=== PATIENT | male | born 1980 | race Caucasian/White ===

== ENCOUNTER 2016-04-16 19:57 | Emergency (ER) | payer SELFPAY ==
[~2016-04-16] VITALS: Ht 193 cm; Wt 128.0 kg
[~2016-04-16 19:57] MED LIST: BENA25TA8 PO; EPIP0.3I IM; MEDR4PAK3 PO
[2016-04-16 19:58] VITALS: BP 160/81; PULSE 82; RESP 18; TEMP 98.2; O2SAT 97
== END 2016-04-16 23:45 | disposition left against medical advice (07) ==
LOC: NED 19:57
DX: R11.2 Nausea with vomiting, unspecified (principal); R42 Dizziness and giddiness; Z53.21 Procedure and treatment not carried out due to patient leaving prior to being seen by health care provider
CPT/HCPCS: 99281

== ENCOUNTER 2016-09-19 16:53 | Emergency (ER) | payer OTHER ==
[~2016-09-19] VITALS: Ht 195.6 cm; Wt 145.0 kg
[2016-09-19 17:01] VITALS: BP 143/100; PULSE 86; RESP 16; TEMP 98.7; O2SAT 95
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
[2016-09-19 17:08] VITALS: BP 143/100; PULSE 82; RESP 16; O2SAT 96
[2016-09-19 17:57] LABS: AUTOMATED NEUTROPHIL # 6.4 TH/MM3 (1.8-7.7); BASOPHIL % 0.2 % (0.0-2.0); EOSINOPHIL # 0.1 TH/MM3 (0-0.4); EOSINOPHIL % 0.8 % (0.0-4.0); HEMATOCRIT 43.8 % (39.0-51.0); HEMO FLAGS DIFF FINAL; LYMPH % 22.2 % (9.0-44.0); LYMPHOCYTE # 2.1 TH/MM3 (1.0-4.8); MEAN CELL VOLUME 83.7 FL (80.0-100.0); MEAN CORPUSCULAR HEMOGLOBIN 27.8 PG (27.0-34.0); MEAN CORPUSCULAR HGB CONC 33.2 % (32.0-36.0); MONO % 8.3 % (0.0-8.0); NEUT % 68.5 % (16.0-70.0); PLATELET COUNT 232 TH/MM3 (150-450); RED BLOOD COUNT 5.23 MIL/MM3 (4.50-5.90); RED CELL DISTRIBUTION WIDTH 13.6 % (11.6-17.2); WHITE BLOOD COUNT 9.4 TH/MM3 (4.0-11.0)
[2016-09-19 18:10] VITALS: BP 133/63; PULSE 69; RESP 18; O2SAT 96
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
[2016-09-19 18:25] LABS: ALT (GPT) 29 U/L (12-78); ANION GAP 8 MEQ/L (5-15); AST (GOT) 20 U/L (15-37); BICARBONATE 26.4 MEQ/L (21.0-32.0); BLOOD UREA NITROGEN 11 MG/DL (7-18); CHLORIDE 105 MEQ/L (98-107); GLOMERULAR FILTRATION RATE 90 ML/MIN (>89); POTASSIUM 3.9 MEQ/L (3.5-5.1); SODIUM (NA) 139 MEQ/L (136-145)
[2016-09-19 18:27] LABS: ALKALINE PHOSPHATASE 122 U/L (45-117); CREATINE KINASE 173 U/L (39-308); TOTAL BILIRUBIN ADULT 0.5 MG/DL (0.2-1.0)
--- NOTE | 2016-09-20 12:17 | EKG ---
Date Performed: 09/19/2016 Time Performed: 17:03:31 PTAGE: 36 years EKG: Sinus rhythm POSSIBLE LEFT ATRIAL ENLARGEMENT Since previous tracing, no significant change noted BORDERLINE ECG PREVIOUS TRACING : 03/07/2014 00.28.34 DOCTOR: Christopher Gregorio Interpretating Date/Time 09/20/2016 12:15:16
== END 2016-09-19 19:02 | disposition home or self-care (01) ==
LOC: NEPC 16:53
DX: R20.9 Unspecified disturbances of skin sensation (principal); M79.605 Pain in left leg; F17.200 Nicotine dependence, unspecified, uncomplicated; W86.0XXA Exposure to domestic wiring and appliances, initial encounter
CPT/HCPCS: 73030; 73090; 73130; 80053; 82550; 84484; 85025; 93005; 99284

== ENCOUNTER 2017-08-27 15:02 | Emergency (ER) | payer SELFPAY ==
[~2017-08-27] VITALS: Ht 193 cm; Wt 150.0 kg
[2017-08-27 15:10] VITALS: BP 126/87; PULSE 91; RESP 20; TEMP 98.7; O2SAT 96
[2017-08-27] MEDS ORDERED: SODIUM CHLOR 0.9% 1000 ML INJ 1,000 ML IV SCH (16:08)
[2017-08-27] MEDS ORDERED: KETOROLAC TROMETHAMINE 30 MG/ML (IVP) VIAL IVP ONE (16:15)
[2017-08-27] MEDS ORDERED: ONDANSETRON ODT 4 MG TAB PO ONE (16:15)
[2017-08-27] MEDS ORDERED: SODIUM CHLORIDE 0.9% FLUSH 10 ML FLUSH IV FLUSH PRN (16:15)
[2017-08-27 16:49] LABS: AUTOMATED NEUTROPHIL # 7.2 TH/MM3 (1.8-7.7); BASOPHIL % 0.2 % (0.0-2.0); EOSINOPHIL # 0.2 TH/MM3 (0-0.4); EOSINOPHIL % 1.7 % (0.0-4.0); HEMATOCRIT 41.6 % (39.0-51.0); HEMOGLOBIN 13.7 GM/DL (13.0-17.0); LYMPH % 27.4 % (9.0-44.0); LYMPHOCYTE # 3.1 TH/MM3 (1.0-4.8); MEAN CELL VOLUME 83.7 FL (80.0-100.0); MEAN CORPUSCULAR HEMOGLOBIN 27.7 PG (27.0-34.0); MEAN CORPUSCULAR HGB CONC 33.1 % (32.0-36.0); MEAN PLATELET VOLUME 8.5 FL (7.0-11.0); MONO % 7.5 % (0.0-8.0); MONOCYTE # 0.9 TH/MM3 (0-0.9); NEUT % 63.2 % (16.0-70.0); PLATELET COUNT 254 TH/MM3 (150-450); RED BLOOD COUNT 4.97 MIL/MM3 (4.50-5.90); WHITE BLOOD COUNT 11.4 TH/MM3 (4.0-11.0)
[2017-08-27 16:52] LABS: PROTHROMBIN TIME - PATIENT 9.8 SEC (9.8-11.6)
[2017-08-27 16:56] LABS: ALBUMIN 4.2 GM/DL (3.4-5.0); AST (GOT) 17 U/L (15-37); BICARBONATE 24.7 MEQ/L (21.0-32.0); BLOOD UREA NITROGEN 14 MG/DL (7-18); CALCIUM 9.1 MG/DL (8.5-10.1); CHLORIDE 105 MEQ/L (98-107); CREATININE 0.72 MG/DL (0.60-1.30); GLOMERULAR FILTRATION RATE 124 ML/MIN (>89); GLUCOSE,RANDOM 85 MG/DL (74-106); SODIUM (NA) 141 MEQ/L (136-145)
[2017-08-27 16:57] LABS: ALT (GPT) 27 U/L (12-78)
[2017-08-27 16:59] LABS: ALKALINE PHOSPHATASE 115 U/L (45-117); TOTAL BILIRUBIN ADULT 0.4 MG/DL (0.2-1.0); TOTAL PROTEIN 7.8 GM/DL (6.4-8.2)
[2017-08-27 17:06] LABS: BILIRUBIN, URINE NEG (NEG); BLOOD, URINE NEG (NEG); GLUCOSE,URINE NEG (NEG); KETONE, URINE TRACE mg/dL (NEG); MUCUS URINE FEW /lpf (OCC); NITRITE,URINE NEG (NEG); PH, URINE 5.5 (5.0-8.5); SQUAMOUS EPITHELIAL CELL URINE <1 /hpf (0-5); URINE COLOR YELLOW (YELLW/STRAW); URINE LEUKOCYTE ESTERASE NEG (NEG)
[2017-08-27] MEDS ORDERED: IOHEXOL 350 MG/ML 10 ML VIAL (for RAD DIAG) IVCONTRAST ONE (17:33)
--- NOTE | 2017-08-27 17:34 | PD ---
HPI Chief Complaint: Flank/Kidney Pain Time Seen by Provider: 15:47 Travel History International Travel<30 days: No Contact w/Intl Traveler<30days: No Traveled to known affect area: No History of Present Illness HPI 36-year-old male presents to emergency department with complaint of left lower abdominal pain since Wednesday. Reports nausea and vomiting. Denies dysuria, fevers. Denies constipation, diarrhea. Denies hematemesis, hematochezia, hematuria. Denies history of abdominal surgeries. Denies history of hernias. Denies history of kidney stones. Rates pain 6/10. Describes as stabbing and pressure. Has tried taking aspirin for symptom management. Worse in certain positions and with lying flat. No known relieving factors. Reports occasional alcohol use. Tobacco use. marijuana use. No primary care provider. Allergies to shellfish, coconut, grass pollen. Denies significant past medical history. Has no other medical complaints. No other modifying factors or associated signs and symptoms. PFSH Past Medical History ADD: Yes ADHD: Yes Diminished Hearing: No Immunizations Current: Yes Social History Alcohol Use: Yes (OCC) Tobacco Use: Yes (/2 PPD) Substance Use: No Allergies-Medications (Allergen,Severity, Reaction): Coded Allergies: shellfish derived (Verified Allergy, Severe, Anaphylaxis, 08/27/17) coconut (Verified Allergy, Unknown, Anaphylaxis, 08/27/17) grass pollen (Verified Allergy, Unknown, Anaphylaxis, 08/27/17) Reported Meds & Prescriptions Reported Meds & Active Scripts Active Zofran Odt (Ondansetron Odt) 4 Mg Tab 4 Mg SL Q8HR PRN Flagyl (Metronidazole) 500 Mg Tab 500 Mg PO TID 7 Days Ciprofloxacin (Ciprofloxacin HCl) 500 Mg Tab 500 Mg PO BID 7 Days Review of Systems Except as stated in HPI: all other systems reviewed are Neg Physical Exam Narrative GENERAL: Well-nourished, well-developed male patient, in no acute distress; afebrile SKIN: Warm and dry. HEAD: Atraumatic. Normocephalic. EYES: Pupils equal and round. No scleral icterus. No injection or drainage. ENT: Mucosa pink and moist. Airway patent. NECK: Trachea midline. CARDIOVASCULAR: Regular rate and rhythm. No murmur appreciated. RESPIRATORY: No accessory muscle use. Clear to auscultation. Breath sounds equal bilaterally. GASTROINTESTINAL: Abdomen soft, tenderness on palpation to left lower quadrant, nondistended. Hepatic and splenic margins not palpable. Bowel sounds are active 4 quadrants. Nonrigid. No guarding. BACK: No CVA tenderness. MUSCULOSKELETAL: No obvious deformities. No clubbing. No cyanosis. No edema. NEUROLOGICAL: Awake and alert. Oriented 3. No obvious cranial nerve deficits. Motor grossly within normal limits. Normal speech. PSYCHIATRIC: Appropriate mood and affect; insight and judgment normal. Data Data Last Documented VS Vital Signs Date Time Temp Pulse Resp B/P (MAP) Pulse Ox O2 Delivery O2 Flow Rate FiO2 08/27/17 15:10 98.7 91 20 126/87 (100) 96 Orders Orders Complete Blood Count With Diff (08/27/17 16:08) Comprehensive Metabolic Panel (08/27/17 16:08) Lipase (08/27/17 16:08) Prothrombin Time / Inr (Pt) (08/27/17 16:08) Act Partial Throm Time (Ptt) (08/27/17 16:08) Urinalysis - C+S If Indicated (08/27/17 16:08) Ct Abd/Pel W Iv Contrast(Rout) (08/27/17 16:08) Sodium Chlor 0.9% 1000 Ml Inj (Ns 1000 M (08/27/17 16:08) Sodium Chloride 0.9% Flush (Ns Flush) (08/27/17 16:15) Ketorolac Inj (Toradol Inj) (08/27/17 16:15) Ondansetron Odt (Zofran Odt) (08/27/17 16:15) Iohexol 350 Inj (Omnipaque 350 Inj) (08/27/17 17:33) Ed Discharge Order (08/27/17 19:04) Labs Laboratory Tests Test 08/27/17 16:00 08/27/17 16:15 Urine Color YELLOW Urine Turbidity CLEAR Urine pH 5.5 Urine Specific [place] 1.030 Urine Protein TRACE mg/dL Urine Glucose (UA) NEG mg/dL Urine Ketones TRACE mg/dL Urine Occult Blood NEG Urine Nitrite NEG Urine Bilirubin NEG Urine Urobilinogen 2.0 MG/DL Urine Leukocyte Esterase NEG Urine WBC 1 /hpf Urine Squamous Epithelial Cells <1 /hpf Urine Mucus FEW /lpf Microscopic Urinalysis Comment CULT NOT INDICATED White Blood Count 11.4 TH/MM3 Red Blood Count 4.97 MIL/MM3 Hemoglobin 13.7 GM/DL Hematocrit 41.6 % Mean Corpuscular Volume 83.7 FL Mean Corpuscular Hemoglobin 27.7 PG Mean Corpuscular Hemoglobin Concent 33.1 % Red Cell Distribution Width 14.0 % Platelet Count 254 TH/MM3 Mean Platelet Volume 8.5 FL Neutrophils (%) (Auto) 63.2 % Lymphocytes (%) (Auto) 27.4 % Monocytes (%) (Auto) 7.5 % Eosinophils (%) (Auto) 1.7 % Basophils (%) (Auto) 0.2 % Neutrophils # (Auto) 7.2 TH/MM3 Lymphocytes # (Auto) 3.1 TH/MM3 Monocytes # (Auto) 0.9 TH/MM3 Eosinophils # (Auto) 0.2 TH/MM3 Basophils # (Auto) 0.0 TH/MM3 CBC Comment DIFF FINAL Differential Comment Prothrombin Time 9.8 SEC Prothromb Time International Ratio 1.0 RATIO Activated Partial Thromboplast Time 27.5 SEC Blood Urea Nitrogen 14 MG/DL Creatinine 0.72 MG/DL Random Glucose 85 MG/DL Total Protein 7.8 GM/DL Albumin 4.2 GM/DL Calcium Level 9.1 MG/DL Alkaline Phosphatase 115 U/L Aspartate Amino Transf (AST/SGOT) 17 U/L Alanine Aminotransferase (ALT/SGPT) 27 U/L Total Bilirubin 0.4 MG/DL Sodium Level 141 MEQ/L Potassium Level 3.8 MEQ/L Chloride Level 105 MEQ/L Carbon Dioxide Level 24.7 MEQ/L Anion Gap 11 MEQ/L Estimat Glomerular Filtration Rate 124 ML/MIN Lipase 80 U/L [facility] Medical Decision Making Medical Screen Exam Complete: Yes Emergency Medical Condition: Yes Medical Record Reviewed: Yes Differential Diagnosis Diverticulitis, nephrolithiasis, colitis Narrative Course 36-year-old male with left lower quadrant abdominal pain with associated nausea and vomiting. Denies fevers. Patient discussed with Dr. Hobbs, my attending physician, and he agrees with my plan of care. CBC, CMP, lipase, urinalysis, IV , IV fluids, Toradol, Zofran, CT abdomen/pelvis ordered. 1733: CBC, CMP, lipase, coags, urinalysis unremarkable. 1900: CT abdomen/pelvis concludes: Abdomen/Pelvis CT 08/27/17 1608 Signed Impressions: CONCLUSION: 1. Increased density in the mesentery of the left lower quadrant which is nons pecific but could represent mild inflammatory change. The adjacent colon appear s unremarkable without oral contrast. 2. The remainder of the study is unremarkable in appearance. Patient provided a copy of the CT report. I discussed CT findings with Dr. Benito and plan of care for discharge discussed. Flagyl, Cipro, Zofran prescribed for home. Instructed patient to follow-up with [facility]. Instructed patient to follow up with primary care provider. Patient verbalizes understanding and agreement with treatment plan. Patient is medically cleared and stable for discharge. Discussed reasons to return to the emergency department. Patient agrees with treatment plan. The patients vital signs are stable and the patient is stable for outpatient follow-up and treatment. Patient discharged home, stable and in no acute distress. Diagnosis Primary Impression: Abdominal pain, left lower quadrant Referrals: [employer] Primary Care Physician Patient Instructions: Abdominal Pain (ED), General Instructions Departure Forms: Tests/Procedures, Work Release Enter return to work date: Aug 29, 2017 Additional Instructions: Antibiotics as prescribed Take Zofran as prescribed for nausea/vomiting Increase fluid intake, starting with clear fluids; advancing to a bland diet as tolerated [place] diet to include crackers, rice, toast, bananas as tolerated, advancing slowly to regular diet Follow-up primary care provider in next 1-2 days Follow-up with [facility] Return to emergency department immediately with worsening of symptoms Med/Other Pt SpecificInfo: Prescription(s) given Scripts Ondansetron Odt (Zofran Odt) 4 Mg Tab 4 MG SL Q8HR Y for Nausea/Vomiting, #10 TAB 0 Refills Prov: Sharlene RamosP 08/27/17 Metronidazole (Flagyl) 500 Mg Tab 500 MG PO TID for Infection for 7 Days, TAB 0 Refills Prov: Sharlene Ramos QUALITY COORDINATOR 08/27/17 Ciprofloxacin (Ciprofloxacin) 500 Mg Tab 500 MG PO BID for Infection for 7 Days, #14 TAB 0 Refills Prov: Sharlene RamosP 08/27/17 Disposition: 01 DISCHARGE HOME Condition: Stable Sharlene Ramos Aug 27, 2017 17:34
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
[2017-08-27] MEDS ORDERED: CIPR500T2 PO (19:03)
[2017-08-27] MEDS ORDERED: METR-1 PO (19:03)
[2017-08-27] MEDS ORDERED: ZOFR4TAB3 SL (19:03)
== END 2017-08-27 19:16 | disposition home or self-care (01) ==
LOC: NEPD 15:02
DX: R10.32 Left lower quadrant pain (principal); R11.2 Nausea with vomiting, unspecified; F12.90 Cannabis use, unspecified, uncomplicated; F90.9 Attention-deficit hyperactivity disorder, unspecified type; F17.200 Nicotine dependence, unspecified, uncomplicated
CPT/HCPCS: 74177; 80053; 81001; 83690; 85025; 85610; 85730; 96361; 96374; 99284; J1885; J7030; Q9967